=== PATIENT | female | born 1990 | race Caucasian/White ===

== ENCOUNTER 2022-08-02 17:07 | Emergency (ER) | payer SELFPAY ==
[2022-08-02] MEDS ORDERED: Dextrose 5%-0.9% NaCl 1,000 ML IV SCH (18:00)
[2022-08-02] MEDS ORDERED: Iopamidol 755 Mg/ML 100 ML Bottle IVPUSH ONE (18:10)
[2022-08-02] MEDS ORDERED: Acetaminophen/oxyCODONE 325-5 MG Tab PO ONE (18:39)
[2022-08-02] MEDS ORDERED: Ibuprofen 600 MG Tab PO ONE (18:39)
== END 2022-08-02 20:30 | disposition other institution (70) ==
LOC: EEVIPCON 17:07 → JD.ED 17:07
DX: K04.7 Periapical abscess without sinus (principal); K02.9 Dental caries, unspecified
CPT/HCPCS: 70486; 70498; 96360; 99285; A9270; J7042; 99284

== ENCOUNTER 2022-08-28 11:00 | Emergency (ER) | payer MEDICAID ==
[2022-08-28] MEDS ORDERED: Sodium Chloride 0.9% 1,000 ML IV STA (11:20)
[2022-08-28] MEDS ORDERED: Ondansetron 4 MG/2 ML SDV IVPUSH ONE (11:20)
[2022-08-28] MEDS: Sodium Chloride 0.9% 10 ML Syringe FLUSH PRN ×2 (11:51→12:59)
[2022-08-28 12:12] LABS: CORONAVIRUS COVID-19 NAA NEGATIVE (NEGATIVE)
[2022-08-28] MEDS ORDERED: Ketorolac 30 MG/ML SDV IVPUSH ONE (12:46)
== END 2022-08-28 14:45 | disposition home or self-care (01) ==
LOC: JD.ED 11:00
DX: K52.9 Noninfective gastroenteritis and colitis, unspecified (principal); Z87.891 Personal history of nicotine dependence; Z20.822 Contact with and (suspected) exposure to COVID-19
CPT/HCPCS: 0241U; 36415; 74019; 80053; 81001; 83690; 84703; 85025; 86140; 96361; 96374; 96375; 99284; J1885; J2405; J3490; J7030